=== PATIENT | female | born 1980 | race Caucasian/White ===

== ENCOUNTER → 2017-04-30 | Outpatient (CLI) | payer BC ==
[~2017-04-30] MED LIST: CAMILA; CAMILA PO; CLON1TAB36 PO; DEMULEN PO; DULO30CA PO; DULO60CA6; HYDR1TAB66 PO; LVT.1T PO; NAPR-243; NF-ESOM40C PO; NF-ROP5T PO; ORPH100T PO; TRM50T PO
--- NOTE | 2017-04-30 20:02 | Diagnostic Imaging Report ---
PROCEDURE: MRI lumbar spine. TECHNIQUE: Multiplanar, multisequence MRI of the lumbar spine was performed without contrast. INDICATION: Low back pain. COMPARISON: Lumbar spine MRI 10/19/2008. FINDINGS: Straightening of the lumbar spine is present and unchanged since prior examination. There is no spondylolisthesis. No fracture or marrow replacing process. No evidence of sacral insufficiency fracture. There is discogenic endplate edema present within L5 and S1. The conus terminate at an appropriate level. There is no abnormal clumping of the intrathecal nerve roots. Paravertebral musculature is normal in bulk. T12-L1, L1-L2 and L2-L3: Normal. L3-L4: Mild loss of normal T2 hyperintense signal and mild intervertebral height loss as well. There is a circumferential disc bulge with coexistent central disc protrusion and bilateral foraminal protrusions which results in mild spinal stenosis and mild bilateral foraminal narrowing. L4-L5: Circumferential disc bulge is asymmetric to the right. There is associated loss of normal intervertebral height. Mild facet and ligamentum flavum hypertrophy. There is resultant mild spinal stenosis. Mild right and no left foraminal narrowing. L5-S1: Circumferential disc bulge with coexistent central disc protrusion is unchanged since prior exam. There is resultant mild spinal stenosis. Moderate to severe bilateral foraminal narrowing has also progressed. IMPRESSION: 1. Multilevel degenerative disc disease throughout the lumbar spine has slightly progressed since 10/19/2008. There is mild spinal stenosis at L3-L4 and L5-S1 due to disc bulges and coexistent disc protrusions. However, there is no neural impingement at these levels. 2. Moderate to severe bilateral foraminal narrowing at L5-S1 has progressed since prior exam. Dictated by: Dictated on workstation # [id number]
== END ==
LOC: RAD 17:15
PROVIDERS: ATTEND Physician Assistant
DX: M48.07 Spinal stenosis, lumbosacral region (principal); M51.36 Other intervertebral disc degeneration, lumbar region; M51.27 Other intervertebral disc displacement, lumbosacral region
CPT/HCPCS: 72148

== ENCOUNTER → 2017-06-17 | Outpatient (CLI) | payer BC ==
[2017-06-17 10:32] LABS: MEAN PLATELET VOLUME 9.6 FL (7.4-10.4); RED BLOOD COUNT 5.17 10^6/uL (4.35-5.85); RED CELL DISTRIBUTION WIDTH 13.8 % (10.0-14.5); WHITE BLOOD COUNT 10.5 10^3/uL (4.3-11.0)
[2017-06-17 10:58] LABS: ALANINE AMINOTRANSFERASE 33 U/L (0-55); ALBUMIN 3.9 GM/DL (3.2-4.5); ALKALINE PHOSPHATASE 89 U/L (40-136); BILIRUBIN,TOTAL 0.4 MG/DL (0.1-1.0); BUN/CREATININE RATIO 13; CALCIUM 9.4 MG/DL (8.5-10.1); CARBON DIOXIDE 24 MMOL/L (21-32); CHLORIDE 108 MMOL/L (98-107); CREATININE SERUM 0.82 MG/DL (0.60-1.30); GFR ESTIMATED > 60; GLUCOSE 90 MG/DL (70-105); POTASSIUM 4.1 MMOL/L (3.6-5.0); SODIUM 138 MMOL/L (135-145); TOTAL PROTEIN 6.7 GM/DL (6.4-8.2)
== END ==
LOC: CARD 10:02
PROVIDERS: ATTEND Orthopaedic Surgery
DX: M79.606 Pain in leg, unspecified (principal); R53.83 Other fatigue; Z22.322 Carrier or suspected carrier of Methicillin resistant Staphylococcus aureus
CPT/HCPCS: 36415; 80053; 85027; 87081; 93005

== ENCOUNTER → 2018-07-13 | Outpatient (CLI) | payer BC, OTHER ==
[~2018-07-13] MED LIST changes: +IOHEXOL 240 MGI/ML 20 ML (OMNIPAQUE) VIAL IV ONE; +IOHEXOL 300 MG/ML 50 ML (OMNIPAQUE 300) VIAL IV ONE
--- NOTE | 2018-07-13 12:25 | Diagnostic Imaging Report ---
EXAMINATION: Hysterosalpingogram. INDICATION: Tubal occlusion. TECHNIQUE: Fluoroscopic assistance was provided for Dr. Chen. 12 second of fluoroscopic time was utilized. FINDINGS: There is a catheter extending into the endometrium. The endometrium is opacified and seems unremarkable.. There does appear to be spill from both fallopian tubes. The fallopian tubes are normal in caliber. IMPRESSION: The endometrial cavity is within normal limits and the fallopian tubes are patent bilaterally. Dictated by: Dictated on workstation # [id number]
--- NOTE | 2018-07-13 21:12 | OPERATIVE REPORT ---
DATE OF SERVICE: PROCEDURE IN DETAIL: The patient was brought to the radiology department, placed on x-ray flat upright position in a frogleg position for the patient. A sterile speculum was inserted into the patient's vagina. The cervix was grasped at the 12 o'clock position using a single tooth tenaculum, which allows me to place the dye catheter into the cervix and deployed the balloon. Once it is within the balloon, I removed all the other instruments. Other than the catheter, I removed the speculum out of the patient's vagina. We then oriented herself with a picture of the pelvis using x-ray once the tip of the catheter was seen and the pelvis is adequately visualize. Fluoroscopy is initiated and the radiopaque dye is pressed through the catheter. There was no cavitary shadowing suspicious for an intracavitary lesion. There was bilateral filling of the tubes and extravasation of the dye into the pelvis bilaterally indicating bilateral tubal patency, after which the catheter balloon was then deflated and removed without difficulty. The patient tolerated the procedure well and was taken back out to the outpatient area in stable condition. The entire procedure was performed with both neck and body lead shielding. Job ID: [id number] DocumentID: [id number] Dictated Date: 07/13/2018 11:53:05 Elderly Caregiver Date: 07/13/2018 21:12:05 Dictated By: DO WALE LOWRY
== END ==
LOC: RAD 11:17
PROVIDERS: ATTEND Obstetrics & Gynecology
DX: N97.1 Female infertility of tubal origin (principal)
CPT/HCPCS: 58340; 74740

== ENCOUNTER → 2019-05-27 | Outpatient (CLI) | payer BC ==
[~2019-05-27] VITALS: Ht 165.1 cm; Wt 127.3 kg
[~2019-05-27] MED LIST changes: -IOHEXOL 240 MGI/ML 20 ML (OMNIPAQUE) VIAL IV ONE; -IOHEXOL 300 MG/ML 50 ML (OMNIPAQUE 300) VIAL IV ONE; +LIDOCAINE 1% INJ 20 ML 20 ML VIAL INJ ONE
--- NOTE | 2019-05-27 10:54 | Diagnostic Imaging Report ---
EXAMINATION: Ultrasound-guided biopsy right breast INDICATION: Palpable breast mass Reportedly the patient has a palpable breast mass in the 12 o'clock position of the right breast. The ultrasound examination performed at [facility] on 05/11/2019 noted a small 0.6 x 0.5 x 0.6 cm hypoechoic area in the region of the patient's palpable abnormality. Biopsy was recommended to exclude malignancy. Following aseptic preparation of the skin and administration of local anesthesia the area in question was biopsied. This is exam was technically difficult due to the extremely dense fibroglandular tissue. A single pass lesion was made with a 14-gauge needle. A clip was also inserted into the biopsy site. The patient tolerated the procedure well and was dismissed in good condition. PROCEDURE: IMPRESSION: There has been a successful biopsy of the small hypoechoic lesion in the 12 o'clock position of the right breast. Final pathology report is pending. Dictated by: Dictated on workstation # [id number]
--- NOTE | 2019-05-28 10:42 | Diagnostic Imaging Report ---
EXAM: Unilateral diagnostic right mammogram INDICATION: Post ultrasound-guided biopsy The patient underwent an ultrasound-guided biopsy of the right breast earlier today. There is a stereotactic clip now evident in the biopsy site. On the MLO view, it appears the clip has migrated cephalad a few centimeters from the biopsy site. The overall appearance of the right breast itself is otherwise unchanged. IMPRESSION: There is a localization clip now evident in the right breast. Final pathology report is pending. Dictated by: Dictated on workstation # [id number]
== END ==
LOC: RAD 08:09
PROVIDERS: ATTEND Surgery
DX: N63.10 Unspecified lump in the right breast, unspecified quadrant (principal); N61.0 Mastitis without abscess
CPT/HCPCS: 19083; 88305

== ENCOUNTER → 2020-07-21 | Outpatient (CLI) | payer BC ==
[~2020-07-21] MED LIST changes: -LIDOCAINE 1% INJ 20 ML 20 ML VIAL INJ ONE
== END ==
LOC: WOUNDCARE 09:40
PROVIDERS: ATTEND Orthopaedic Surgery Hand Surgery
DX: E11.52 Type 2 diabetes mellitus with diabetic peripheral angiopathy with gangrene (principal); E11.628 Type 2 diabetes mellitus with other skin complications; I96 Gangrene, not elsewhere classified; S21.001A Unspecified open wound of right breast, initial encounter; S21.201A Unspecified open wound of right back wall of thorax without penetration into thoracic cavity, initial encounter; S01.00XA Unspecified open wound of scalp, initial encounter; T81.31XA Disruption of external operation (surgical) wound, not elsewhere classified, initial encounter; F17.210 Nicotine dependence, cigarettes, uncomplicated; L73.2 Hidradenitis suppurativa
CPT/HCPCS: 99213

== ENCOUNTER → 2020-08-09 | Outpatient (CLI) | payer BC | LOC: WOUNDCARE 15:12 | PROVIDERS: ATTEND Surgery | DX: S21.001A Unspecified open wound of right breast, initial encounter (principal); S01.00XA Unspecified open wound of scalp, initial encounter; T81.31XA Disruption of external operation (surgical) wound, not elsewhere classified, initial encounter; I96 Gangrene, not elsewhere classified; E11.628 Type 2 diabetes mellitus with other skin complications; F17.210 Nicotine dependence, cigarettes, uncomplicated; L73.2 Hidradenitis suppurativa; Z68.41 Body mass index [BMI] 40.0-44.9, adult | CPT/HCPCS: 99213 ==